=== PATIENT | male | born 1970 | race Caucasian/White ===

== ENCOUNTER 2021-09-12 12:30 | Emergency (ER) | payer OTHER, SELFPAY ==
[2021-09-12 12:42] VITALS: BP 162/84; PULSE 87; RESP 16; TEMP 37; O2SAT 97
--- NOTE | 2021-09-12 12:42 | ED.SKABFB ---
HPI - Skin/Abscess/Foreign Bdy General Chief complaint: Dental/Oral Stated complaint: Facial bump Time Seen by Provider: 09/12/21 12:42 Source: patient and RN notes reviewed History of Present Illness HPI narrative: Patient is a 51-year-old male who presents the urgent care with complaints of right lower facial swelling. Patient states he noticed it a couple days ago after breaking off a couple of the lower right dentition. Patient states that he is called his dentist but they are not in the office . They advised him to get on antibiotics prior to his next appointment. Patient has been taking Tylenol and Aleve for pain relief. Denies of fever, chills, nausea or vomiting. No other acute complaints. No acute distress noted. Patient aware of the plan of care. Some parts of this dictation were generated by voice recognition software and may contain typographical and/or grammatical inaccuracies. Related Data Allergies Allergy/AdvReac Type Severity Reaction Status Date / Time morphine Allergy Unknown unknown Verified 09/12/21 12:40 Review of Systems Review of Systems: CONSTITUTIONAL: Denies fever, chills, or sweats. EYES: Denies visual changes, redness, or discharge. ENT: Denies rhinorrhea, congestion, sore throat, or otalgia. Reports of lower right facial swelling and dental pain CARDIOVASCULAR: Denies chest pain, palpitations, or edema. RESPIRATORY: Denies cough or dyspnea. GASTROINTESTINAL: Denies abdominal pain, nausea, vomiting, or diarrhea. GENITOURINARY: Denies dysuria or hematuria. SKIN: Denies rash or itching. MUSCULOSKELETAL: Denies back pain, joint pain, or myalgia. NEUROLOGIC: Denies headache, numbness, or weakness. All other systems reviewed are negative, except as documented in HPI. PMFSH Comments At the time of my signature, I reviewed and agree with the nursing past medical, surgical, social, and family history. There is no relevant family history pertinent to the patient complaint. Exam Narrative: GENERAL: This is a well-nourished, well-developed patient, in no apparent distress. HEAD: normocephalic, atraumatic. EYES: PERRL. Sclera clear/white. Vision is grossly intact. EARS: External ears normal NOSE: External nose normal with no obvious nasal discharge, nares without redness, no rhinorrhea. THROAT: Mucous membranes moist, posterior pharynx clear. Mild right lower mandible swelling localized to the area of the central and lateral right lower incisors with obvious avulsion to the teeth and carious lesions with surrounding edema/erythema NECK: Neck supple, non-tender without lymphadenopathy CARDIOVASCULAR: Regular rate and rhythm without murmurs, gallops, or rubs. RESPIRATORY: Clear to auscultation. Breath sounds equal bilaterally. No wheezes, rales, or rhonchi. SKIN: warm, intact with no suspicious lesions or rash, good texture and turgor. NEURO: awake, alert, and oriented to person, place and time. There were no obvious focal neurologic abnormalities. EXTREMITIES: No clubbing, cyanosis, or edema. Course Vital Signs Vital signs: Vital Signs Temperature 98.6 F 09/12/21 12:42 Pulse Rate 87 09/12/21 12:42 Respiratory Rate 16 09/12/21 12:42 Blood Pressure 162/84 H 09/12/21 12:42 Pulse Oximetry 97 09/12/21 12:42 Temperature 98.6 F 09/12/21 12:42 Pulse Rate 87 09/12/21 12:42 Respiratory Rate 16 09/12/21 12:42 Blood Pressure 162/84 H 09/12/21 12:42 Pulse Oximetry 97 09/12/21 12:42 Reviewed-patient is informed that they may have pre-hypertension or hypertension based on a blood pressure reading in the department. I recommend the patient call the primary care provider listed on their discharge instructions or a physician of their choice this week to arrange follow-up for further evaluation of possible pre-hypertension or hypertension. MDM - Skin/Abscess/Foreign Bdy MDM Narrative Medical decision making narrative: Advised patient to complete the oral antibiotic regimen as prescrib
== END 2021-09-12 13:06 | disposition home or self-care (01) ==
PROVIDERS: Emergency Provider Nurse Practitioner Family
DX: K04.7 Periapical abscess without sinus (principal); K02.9 Dental caries, unspecified
CPT/HCPCS: 99203; G0463

== ENCOUNTER 2022-05-07 09:36 | Outpatient (CLI) | payer OTHER, SELFPAY ==
[2022-05-07 18:51] LABS: Basophils Percent Auto 0.6 % (0.2-1.2); Eosinophils Absolute Auto 0.2 K/mm3 (0-0.3); Eosinophils Percent Auto 2.8 % (0-4.4); Hematocrit 44.2 % (42.0-52.0); Hemoglobin 14.8 g/dL (14.0-18.0); Immature Granulocyte Absolute 0.01 K/mm3 (0.00-0.031); Immature Granulocyte Percent A 0.2 % (0-0.5); Lymphocytes Percent Auto 26.6 % (18.3-44.2); Mean Corpuscular HGB Conc 33.5 g/dl (32-36); Mean Corpuscular Hemoglobin 30.7 pg (26-34); Mean Corpuscular Volume 91.7 fl (80-100); Mean Platelet Volume 10.2 fl (7.4-10.4); Monocytes Absolute Auto 0.5 K/mm3 (0.1-0.6); Neutrophils Percent Auto 61.8 % (45.5-73.1); Platelet Count Result 201 k/mm3 (150-375); Red Blood Count 4.82 M/mm3 (4.6-6.20); Red Cell Distribution Width 12.1 % (11.5-14.5); White Blood Count 6.4 K/mm3 (4.5-10.0)
[2022-05-07 18:56] LABS: Alanine Aminotransferase 17 U/L (6-50); Albumin Level 4.3 g/dL (3.5-5.1); Alkaline Phosphatase 57 U/L (38-126); Anion Gap 6 mmol/L (8-16); Aspartate Amino Transferase 31 U/L (17-59); Bilirubin,Total 0.5 mg/dL (0.2-1.3); Blood Urea Nitrogen 18 mg/dL (9-20); Calcium 9.2 mg/dL (8.4-10.2); Carbon Dioxide 31 mmol/L (22-30); Chloride 101 mmol/L (98-107); Cholesterol 155 mg/dL (0-200); Estimated Glomerular Filt Rate > 60; Glucose 100 mg/dL (65-110); HDL Direct 33 mg/dL; Potassium 4.1 mmol/L (3.4-5.0); Sodium 138 mmol/L (137-145); Triglycerides 128 mg/dL (<150)
[2022-05-07 19:08] LABS: LDL Cholesterol Direct 88 mg/dL
[2022-05-07 19:22] LABS: Prostate Specific Antigen 0.5 ng/mL (< OR = 4.0)
== END 2022-05-07 09:37 | disposition home or self-care (01) ==
LOC: ANHGOSHLAB 09:38
PROVIDERS: PCP Family Medicine; Visit Provider Family Medicine
DX: Z13.228 Encounter for screening for other metabolic disorders (principal); Z13.220 Encounter for screening for lipoid disorders; Z12.5 Encounter for screening for malignant neoplasm of prostate; K62.5 Hemorrhage of anus and rectum
CPT/HCPCS: 36415; 80053; 80061; 84153; 85025; G0103